=== PATIENT | male | born 1995 | race African-American/Black ===

== ENCOUNTER 2018-10-27 10:12 | Emergency (ER) | payer BC | END 2018-10-27 11:18 | disposition home or self-care (01) | LOC: ERS 10:12 | DX: J02.9 Acute pharyngitis, unspecified (principal) | CPT/HCPCS: 87081; 87430; 99283 ==

== ENCOUNTER 2018-10-29 20:25 | Emergency (ER) | payer BC ==
[2018-10-29] MEDS ORDERED: cefTRIAXone\\ROCEPHIN 1 GM VIAL ONE (21:59)
[2018-10-29] MEDS ORDERED: Morphine 4 MG/ML VIAL ONE (22:16)
[2018-10-29] MEDS ORDERED: Ondansetron PF 4 MG/2 ML Vial ONE (22:16)
[2018-10-29] MEDS ORDERED: Dexamethasone 4 mg/ml Vial ONE (22:16)
[2018-10-29 22:20] LABS: Hemoglobin 14.8 g/dL (14.0-18.0); Mean Corpuscular Hemoglobin 28.6 pg (27.0-31.0); Mean Corpuscular Volume 86.7 fL (78.0-98.0); Mean Platelet Volume 8.1 fL (7.4-10.4); Platelet Count 267 thou/uL (130-400); RBC Distribution Width 12.4 % (11.5-14.5); Red Blood Cell (RBC) Count 5.17 mill/uL (4.70-6.10); White Blood Cell (WBC) Count 21.9 thou/uL (4.8-10.8)
[2018-10-29 22:39] LABS: Band 7 % (5-11); Lymphocytes 11 % (21-51); MDiff Complete? YES; Monocytes 4 % (0-10); Neutrophil 78 % (42-75)
[2018-10-29 22:43] LABS: ALT (SGPT) 13 U/L (8-55); AST (SGOT) 17 U/L (5-34); Alkaline Phosphatase 84 U/L (40-150); Anion Gap 13 mmol/L (10-20); BUN (Urea Nitrogen) 8 mg/dL (8.9-20.6); Bilirubin, Total 1.6 mg/dL (0.2-1.2); Calc. Creatinine Clearance 0 mL/min (70-130); Calcium 9.6 mg/dL (7.8-10.44); Carbon Dioxide 25 mmol/L (22-29); Chloride 105 mmol/L (98-107); Estimated GFR-MDRD Greater than 90; Globulin 3.5 g/dL (2.4-3.5); Glucose 86 mg/dL (70-105); Potassium 3.9 mmol/L (3.5-5.1); Protein, Total 7.5 g/dL (6.0-8.3); Sodium 139 mmol/L (136-145)
== END 2018-10-29 22:58 | disposition home or self-care (01) ==
LOC: ERS 20:25
DX: J36 Peritonsillar abscess (principal); Z79.899 Other long term (current) drug therapy
CPT/HCPCS: 80053; 85025; 87081; 87430; 96365; 96375; J0696; J1100; J2270; J2405

== ENCOUNTER 2018-10-30 00:37 | Emergency (ER) | payer BC | END 2018-10-30 01:27 | disposition left against medical advice (07) | LOC: ERS 00:37 | DX: Z53.21 Procedure and treatment not carried out due to patient leaving prior to being seen by health care provider (principal) ==

== ENCOUNTER 2018-12-03 10:36 | Emergency (ER) | payer BC ==
--- NOTE | 2018-12-03 12:14 | CT ---
HEAD CT WITHOUT CONTRAST: Date: 12/03/18 HISTORY: Headache x1 week. Status post trauma. COMPARISON: None. FINDINGS: No parenchymal hemorrhage. No extra-axial hematoma. No midline shift. Basilar cisterns are patent. Br ain volume, age-appropriate. Cortical balderas-white matter differentiation preserved. No evidence of hyd rocephalus. Adequate aeration of the sinuses and mastoid air cells. Intact calvarium. IMPRESSION: No intracranial post-traumatic sequelae. No acute intracranial process. POS: [facility]
[2018-12-03] MEDS ORDERED: diphenhydrAMINE 50 MG/ML VIAL ONE (12:18)
[2018-12-03] MEDS ORDERED: Metoclopramide HCl 10 MG/2 ML VIAL ONE (12:18)
[2018-12-03] MEDS ORDERED: Acetaminophen 500 MG TAB ONE (12:18)
== END 2018-12-03 13:44 | disposition home or self-care (01) ==
LOC: ERS 10:36
DX: R51 Headache (principal)
CPT/HCPCS: 70450; 96365; 96375; J1200; J2765